=== PATIENT | female | born 2000 | race Two or more races ===

== ENCOUNTER 2021-08-30 23:36 | Emergency (ER) | payer BC, OTHER ==
[~2021-08-30] VITALS: Ht 167.6 cm; Wt 104.3 kg
[2021-08-31] MEDS ORDERED: CEPH500T PO (00:13)
[2021-08-31 00:25] VITALS: BP 148/96
== END 2021-08-31 00:52 | disposition home or self-care (01) ==
LOC: ER 23:37
DX: L02.413 Cutaneous abscess of right upper limb (principal)